=== PATIENT | male | born 2000 | race Caucasian/White ===

== ENCOUNTER 2023-05-29 15:33 | Outpatient (AMB) | payer OTHER, SELFPAY ==
--- NOTE | 2023-05-29 14:07 | MHC.OFFVISPS ---
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 He has had trouble getting the luvox ER from pharmacy due to manufacturing shortage; He continues to have anxiety and worry as well as low mood and low motivation; he denies SI or HI; No sign of cristobal or psychosis . In 2022, pt had a seizure on a Thursday at home in his bedroom around 4pm. He went to the ER and was evaluated. He denies alcohol use since November 2022. He had been using some THC but no change from past. He reports he had been taking a slight bit more of ativan up to 2 tabs at a time. He also was taking the IR luvox because he was unable to get the ER due to manufacturing delay. He was also on wellbutrin at the time. He did not injure himself. He had follow up with a neurologist who evaluated him and did EEG - no epilepsy and pt says that he was told probably a combination of things and wouldn't likely happen again- did recommend titrating off wellbutrin which we did. he has never had a seizure in past and no family history of seizures. He is struggling with stress related to his job and recent break up with GF. He can not drive until July due to the seizure. 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 He denies SI or HI. appetite intact. He reports sleep is good. Past Psychiatric History: Outpatient treatment of anxiety and OCD since age 16. prozac - higher then 30 mg in past caused edginess zoloft caused GI upset luvox partial effectiveness and hard to get due to manufacturing shortage. Panic attacks: Yes Agoraphobia: No Separation anxiety disorder: No Social phobia: Yes Specific phobia: No Body dysmorphic disorder: No Obsessive compulsive disorder: Yes Generalized anxiety: Yes Post traumatic stress disorder: No Acute stress disorder: No Previous psychiatric history: Yes Previous inpatient psychiatric hospitalization: No Other previous psychiatric treatment programs: none History of suicidal ideation: Yes History of suicide attempt: No Medically hospitalized: Yes History of self injurious behavior: No History of violence: No Current/previous psychiatrist: Gus Current/previous therapist: none Subjective Subjective Subjective Medication Compliance: Yes Side effects from medications: No Review of Systems Medical Review of Systems: unchanged Review of Systems Review of Systems Yes all other systems are reviewed and are negative Mental Status Exam Mental Status Exam Patient Appearance: Well Grooomed and Appropriate Patient Orientation: Person, Place, Time and Situation Level of Consciousness: Awake Patient Behavior: Appropriate and Cooperative Mood Description: Appropriate and Anxious Affect Description: Appropriate, Anxious and Flat Patient Cognition Impaired: No Ability to Follow Directions: Good Speech Pattern: Clear and Appropriate Memory Description: Intact Hallucinations: None Delusions: Not Present Thought Process: Intact and Goal Oriented Thought Content: positive for Intact and positive for Goal Oriented Judgement: Fair Assessment and Plan Assessment & Plan (1) Obsessive-compulsive disorder: Qualifiers: Obsessive-compulsive disorder type: mixed obsessional thoughts and acts Qualified Code(s): F42.2 - Mixed obsessional thoughts and acts Code(s): F42.9 - Obsessive-compulsive disorder, unspecified (2) Generalized anxiety disorder: Code(s): F41.1 - Generalized anxiety disorder (3) Dysthymia: Code(s): F34.1 - Dysthymic disorder Plan discussed options for medications for improved symptoms control; discussed risks vs benefits of changing medications and expected outcome; pt agree to trial of prozac Plan to cross titrate luvox to prozac start the prozac 20 mg and take one cap every other day x 14 days then take one cap daily x 14 days at the same time reduce luvox to luvox ER 150mg daily plus luvox IR 100mg daily x 7 days the reduce to luvox ER 150mg daily and lovix IR 50mg daily x 7days then start prozac 20mg daily and take luvox ER 150mg once a day x 7 days then take prozac 20 mg cap daily and luvox IR 50 mg daily x 7 days then stop luvox call office if feel dizziness, confusion, sweaty, chills, nausea, or any new discomfort or mood changes return for follow up in 4-6 weeks. Medications: New fluoxetine (Prozac) 20 mg orally take one capsule every other day x 14 days then take every day x 14 days 30 caps 0RF Counseling and coordination of Care Pt. Self Management counseling: Maintenance-social rhythm, Sleep hygiene and General coping skills Medication management counseling: Effectiveness, Side effects, Dosing range, Duration, Drug interaction and Adherence Diagnosis and Prognosis Counseling: Accuracy of diagnosis, Prognosis over time, Impact of diagnosis on life functions, Impact of family relationship, Problematic behaviors secondary to diagnosis and Adequacy of current interventions Details: I spent 30 minutes reviewing the record, seeing the patient and documenting in the medical record. Counseling provided to the patient/caregiver as outlined below. Addressed patient/caregiver concerns regarding current medication regime including effective adherence. Addressed patient/caregiver concerns regarding diagnosis and prognosis including accuracy of diagnosis, prognosis over time, impact of diagnosis. Addressed patient/caregiver concerns regarding impact of recent stressors. [facility] Medical History (Updated 05/29/23 @ 16:27 by Юлия Weber APRN) History of herniated intervertebral disc Surgical History (Updated 05/29/23 @ 16:27 by Юлия Weber APRN) History of hernia surgery Social History: grew up in [place] with mother and father, 1 younger sister in high school, graduated high school, [employer] [place] as business major, enjoys movies, hanging out with friends sports Substance History: episodic etoh and THC use Trauma History: multiple surgeries as child Coding Level of Care Code Est Pt Level 4 (83288) Diagnoses Mixed obsessional thoughts and acts F42.2 Obsessive-compulsive disorder type: mixed obsessional thoughts and acts Generalized anxiety disorder F41.1 Dysthymia F34.1
== END 2023-05-29 18:47 | disposition home or self-care (01) ==
LOC: HO.HOP 15:33
PROVIDERS: PCP Internal Medicine; Visit Provider Clinical Nurse Specialist Psychiatric/Mental Health
DX: F42.2 Mixed obsessional thoughts and acts (principal); F41.1 Generalized anxiety disorder; F34.1 Dysthymic disorder
CPT/HCPCS: 99214

== ENCOUNTER → 2023-05-29 15:33 | Outpatient (BNVA) | payer OTHER, SELFPAY | PROVIDERS: PCP Internal Medicine; Visit Provider Clinical Nurse Specialist Psychiatric/Mental Health ==

== ENCOUNTER 2023-07-10 19:23 | Outpatient (AMB) | payer OTHER, SELFPAY ==
--- NOTE | 2023-07-10 15:30 | A.OFFPSYCH_ITS ---
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 prozac - higher then 30 mg in past caused edginess zoloft caused GI upset luvox partial effectiveness and hard to get due to manufacturing shortage. Subjective Subjective Subjective Medication Compliance: Yes Side effects from medications: No Review of Systems Medical Review of Systems: unchanged Mental Status Exam Mental Status Exam Patient Appearance: Well Grooomed and Appropriate Patient Orientation: Person, Place, Time and Situation Level of Consciousness: Awake Patient Behavior: Appropriate and Cooperative Mood Description: Withdrawn Affect Description: Flat Patient Cognition Impaired: No Ability to Follow Directions: Good Speech Pattern: Clear and Appropriate Memory Description: Intact Hallucinations: None Delusions: Not Present Thought Process: Intact Thought Content: positive for Intact Judgement: Good Assessment and Plan Assessment & Plan (1) Obsessive-compulsive disorder: Qualifiers: Obsessive-compulsive disorder type: mixed obsessional thoughts and acts Qualified Code(s): F42.2 - Mixed obsessional thoughts and acts Code(s): F42.9 - Obsessive-compulsive disorder, unspecified (2) SINDY (generalized anxiety disorder): Status: Acute Code(s): F41.1 - Generalized anxiety disorder Medications: Changed From fluoxetine (Prozac) 20 mg PO DAILY 30 caps 3RF To fluoxetine (Prozac) 40 mg (2 x 20 mg) PO DAILY 60 caps 3RF Counseling and coordination of Care Pt. Self Management counseling: Exercise, Mod caffeine/ETOH intake, Nutrition education and improvement, Sleep hygiene and Behavior activation Medication management counseling: Effectiveness, Side effects, Dosing range, Duration, Drug interaction and Adherence Diagnosis and Prognosis Counseling: Accuracy of diagnosis, Prognosis over time, Impact of diagnosis on life functions, Impact of family relationship, Problematic behaviors secondary to diagnosis and Adequacy of current interventions Details: I spent [] minutes reviewing the record, seeing the patient and documenting in the medical record. Counseling provided to the patient/caregiver as outlined below. Addressed patient/caregiver concerns regarding current medication regime including effective adherence. Addressed patient/caregiver concerns regarding diagnosis and prognosis including accuracy of diagnosis, prognosis over time, impact of diagnosis. Addressed patient/caregiver concerns regarding impact of recent stressors. [facility] Medical History (Updated 07/13/23 @ 10:57 by Юлия Weber APRN) History of herniated intervertebral disc Surgical History (Updated 05/29/23 @ 16:27 by Юлия Weber APRN) History of hernia surgery Social History: grew up in [place] with mother and father, 1 younger sister in high school, graduated high school, [employer] as business major, enjoys movies, hanging out with friends sports Substance History: episodic etoh and THC use Trauma History: multiple surgeries as child Coding Level of Care Code Est Pt Level 4 (35465) Diagnoses Mixed obsessional thoughts and acts F42.2 Obsessive-compulsive disorder type: mixed obsessional thoughts and acts SINDY (generalized anxiety disorder) F41.1
== END 2023-07-10 19:24 | disposition home or self-care (01) ==
LOC: HO.HOP 19:24
PROVIDERS: PCP Internal Medicine; Visit Provider Clinical Nurse Specialist Psychiatric/Mental Health
DX: F42.2 Mixed obsessional thoughts and acts (principal); F41.1 Generalized anxiety disorder
CPT/HCPCS: 99214

== ENCOUNTER → 2023-07-10 19:23 | Outpatient (BNVA) | payer OTHER, SELFPAY | PROVIDERS: PCP Internal Medicine; Visit Provider Clinical Nurse Specialist Psychiatric/Mental Health ==

== ENCOUNTER 2023-09-11 11:55 | Outpatient (AMB) | payer OTHER, SELFPAY ==
--- NOTE | 2023-09-11 11:39 | MHC.OFFVISPS ---
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 He is not sleeping well. He wakes up after a few hours of sleep and then can not return to sleep for an hour or more. He does get 7 hours but it is broken sleep and often not refreshing; He has started a new job 2 weeks ago and works 3-11 shift mostly. No SI or HI. He would like to try increasing the prozac to 60mg and we discussed retrial of hydroxyzine for sleep. No etoh or thc use HPI Narrative: pt struggling with depression and anxiety since 16, trial of luvox. pt had seizure on wellbutrin over 6 months ago- had full work up - no epilepsy. start on prozac without side effects; recent stress is job change and break up with GF several months ago Past Psychiatric History: Outpatient treatment of anxiety and OCD since age 16. prozac - higher then 30 mg in past caused edginess zoloft caused GI upset luvox partial effectiveness and hard to get due to manufacturing shortage. Mental Status Exam Mental Status Exam Patient Appearance: Well Grooomed and Appropriate Patient Orientation: Person, Place, Time and Situation Level of Consciousness: Awake and Alert Patient Behavior: Appropriate, Cooperative and Good Eye Contact Mood Description: Depressed and Anxious Affect Description: Flat Patient Cognition Impaired: No Ability to Follow Directions: Good Speech Pattern: Clear Memory Description: Intact Hallucinations: None Delusions: Not Present Thought Process: Intact Thought Content: positive for Intact Judgement: Good Assessment and Plan Assessment & Plan (1) SINDY (generalized anxiety disorder): Status: Acute Code(s): F41.1 - Generalized anxiety disorder (2) Dysthymia: Status: Acute Code(s): F34.1 - Dysthymic disorder Plan increase prozac to 60mg daily add hydroxyzine 25 mg at bedtime ativan prn panic/severe anxiety Medications: New hydroxyzine HCl 25 mg PO BEDTIME PRN 30 tabs 2RF sleep lorazepam 0.5 mg PO DAILY 20 tabs 0RF Changed From fluoxetine (Prozac) 40 mg (2 x 20 mg) PO DAILY 60 caps 3RF To fluoxetine (Prozac) 60 mg (3 x 20 mg) PO DAILY 60 caps 3RF Refilled fluoxetine (Prozac) 60 mg (3 x 20 mg) PO DAILY 90 caps 3RF Counseling and coordination of Care Medication management counseling: Effectiveness, Side effects, Dosing range, Duration, Drug interaction and Adherence Diagnosis and Prognosis Counseling: Accuracy of diagnosis, Prognosis over time, Impact of diagnosis on life functions, Problematic behaviors secondary to diagnosis and Adequacy of current interventions Details: I spent 30 minutes reviewing the record, seeing the patient and documenting in the medical record. Counseling provided to the patient/caregiver as outlined below. Addressed patient/caregiver concerns regarding current medication regime including effective adherence. Addressed patient/caregiver concerns regarding diagnosis and prognosis including accuracy of diagnosis, prognosis over time, impact of diagnosis. Addressed patient/caregiver concerns regarding impact of recent stressors. [facility] Medical History (Updated 09/11/23 @ 13:03 by Юлия Weber APRN) History of herniated intervertebral disc Surgical History (Updated 05/29/23 @ 16:27 by Юлия Weber APRN) History of hernia surgery Social History: grew up in [place] with mother and father, 1 younger sister in high school, graduated high school, [employer] as business major, enjoys movies, hanging out with friends sports Substance History: episodic etoh and THC use Trauma History: multiple surgeries as child Coding Level of Care Code Est Pt Level 4 (73705) Diagnoses SINDY (generalized anxiety disorder) F41.1 Dysthymia F34.1
== END 2023-09-11 11:58 | disposition home or self-care (01) ==
LOC: HO.HOP 11:55
PROVIDERS: PCP Internal Medicine; Visit Provider Clinical Nurse Specialist Psychiatric/Mental Health
DX: F41.1 Generalized anxiety disorder (principal); F34.1 Dysthymic disorder
CPT/HCPCS: 99214

== ENCOUNTER → 2023-09-11 11:55 | Outpatient (BNVA) | payer OTHER, SELFPAY | PROVIDERS: PCP Internal Medicine; Visit Provider Clinical Nurse Specialist Psychiatric/Mental Health ==

== ENCOUNTER 2023-10-30 11:30 | Outpatient (AMB) | payer OTHER, SELFPAY ==
--- NOTE | 2023-10-30 11:58 | MHC.OFFVISPS ---
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 mild depression symporms; anxiety mild; sleep intact; no SI or HI no medical changes Past Psychiatric History: Outpatient treatment of anxiety and OCD since age 16. prozac - higher then 30 mg in past caused edginess zoloft caused GI upset luvox partial effectiveness and hard to get due to manufacturing shortage. Subjective Subjective Subjective Medication Compliance: Yes Side effects from medications: No Review of Systems Medical Review of Systems: unchanged Mental Status Exam Mental Status Exam Patient Appearance: Well Grooomed and Appropriate Patient Orientation: Person, Place, Time and Situation Level of Consciousness: Awake Patient Behavior: Appropriate and Cooperative Mood Description: Calm and Flat Affect Description: Calm and Flat Patient Cognition Impaired: No Ability to Follow Directions: Good Speech Pattern: Clear and Soft-Spoken Memory Description: Intact Hallucinations: None Delusions: Not Present Thought Process: Intact Thought Content: positive for Intact Judgement: Good Assessment and Plan Assessment & Plan (1) SINDY (generalized anxiety disorder): Status: Acute Code(s): F41.1 - Generalized anxiety disorder (2) Dysthymia: Status: Acute Code(s): F34.1 - Dysthymic disorder Plan continue prozac 60 mg daily continue hydroxyzine and ativan prn no refills needed Counseling and coordination of Care Pt. Self Management counseling: Maintenance-social rhythm, Mod caffeine/ETOH intake, Sleep hygiene, Behavior activation and General coping skills Medication management counseling: Effectiveness, Side effects, Dosing range, Duration, Drug interaction and Adherence Diagnosis and Prognosis Counseling: Accuracy of diagnosis and Adequacy of current interventions Details: I spent [] minutes reviewing the record, seeing the patient and documenting in the medical record. Counseling provided to the patient/caregiver as outlined below. Addressed patient/caregiver concerns regarding current medication regime including effective adherence. Addressed patient/caregiver concerns regarding diagnosis and prognosis including accuracy of diagnosis, prognosis over time, impact of diagnosis. Addressed patient/caregiver concerns regarding impact of recent stressors. [facility] Medical History (Updated 09/11/23 @ 13:03 by Юлия Weber APRN) History of herniated intervertebral disc Surgical History (Updated 05/29/23 @ 16:27 by Юлия Weber APRN) History of hernia surgery Social History: [place] in [place] with mother and father, 1 younger sister in high school, graduated high school, [employer] as business major, enjoys movies, hanging out with friends sports Substance History: episodic etoh and THC use Trauma History: multiple surgeries as child Coding Level of Care Code Est Pt Level 4 (99120) Diagnoses SINDY (generalized anxiety disorder) F41.1 Dysthymia F34.1
== END 2023-10-30 12:04 | disposition home or self-care (01) ==
LOC: HO.HOP 11:30
PROVIDERS: PCP Internal Medicine; Visit Provider Clinical Nurse Specialist Psychiatric/Mental Health
DX: F41.1 Generalized anxiety disorder (principal); F34.1 Dysthymic disorder
CPT/HCPCS: 99214

== ENCOUNTER → 2023-10-30 11:30 | Outpatient (BNVA) | payer OTHER, SELFPAY | PROVIDERS: PCP Internal Medicine; Visit Provider Clinical Nurse Specialist Psychiatric/Mental Health ==

== ENCOUNTER 2023-12-25 11:31 | Outpatient (AMB) | payer OTHER, SELFPAY ==
--- NOTE | 2023-12-25 11:44 | MHC.OFFVISPS ---
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 pt is working [employer] and doing well. He is spending time with friends and family. No other changes Past Psychiatric History: Outpatient treatment of anxiety and OCD since age 16. prozac - higher then 30 mg in past caused edginess zoloft caused GI upset luvox partial effectiveness and hard to get due to manufacturing shortage. Subjective Subjective Subjective Medication Compliance: Yes Side effects from medications: No Review of Systems Medical Review of Systems: unchanged Mental Status Exam Mental Status Exam Patient Appearance: Well Grooomed and Appropriate Patient Orientation: Person, Place, Time and Situation Level of Consciousness: Awake and Appropriate Patient Behavior: Appropriate and Cooperative Mood Description: Depressed Affect Description: Flat Patient Cognition Impaired: No Ability to Follow Directions: Good Speech Pattern: Clear, Appropriate and Coherent Memory Description: Intact Hallucinations: None Delusions: Not Present Thought Process: Intact and Goal Oriented Thought Content: positive for Intact and positive for Goal Oriented Judgement: Good Assessment and Plan Assessment & Plan (1) Dysthymia: Status: Acute Code(s): F34.1 - Dysthymic disorder (2) SINDY (generalized anxiety disorder): Status: Acute Code(s): F41.1 - Generalized anxiety disorder Plan continue prozac 60 mg daily continnue hydroxyzine and ativan prn Medications: Refilled lorazepam 0.5 mg PO DAILY 20 tabs 0RF fluoxetine (Prozac) 60 mg (3 x 20 mg) PO DAILY 90 caps 3RF hydroxyzine HCl 25 mg PO BEDTIME PRN 30 tabs 2RF sleep Counseling and coordination of Care Pt. Self Management counseling: Maintenance-social rhythm, Mod caffeine/ETOH intake and General coping skills Medication management counseling: Effectiveness, Side effects, Dosing range, Duration, Drug interaction and Adherence Diagnosis and Prognosis Counseling: Accuracy of diagnosis, Prognosis over time, Impact of diagnosis on life functions, Impact of family relationship, Problematic behaviors secondary to diagnosis and Adequacy of current interventions Details: I spent 30 minutes reviewing the record, seeing the patient and documenting in the medical record. Counseling provided to the patient/caregiver as outlined below. Addressed patient/caregiver concerns regarding current medication regime including effective adherence. Addressed patient/caregiver concerns regarding diagnosis and prognosis including accuracy of diagnosis, prognosis over time, impact of diagnosis. Addressed patient/caregiver concerns regarding impact of recent stressors. [facility] Medical History (Updated 09/11/23 @ 13:03 by Юлия Weber APRN) History of herniated intervertebral disc Surgical History (Updated 05/29/23 @ 16:27 by Юлия Weber APRN) History of hernia surgery Social History: grew up in [place] with mother and father, 1 younger sister in high school, graduated high school, [employer] as business major, enjoys movies, hanging out with friends sports Substance History: episodic etoh and THC use Trauma History: multiple surgeries as child Coding Level of Care Code Est Pt Level 4 (21498) Diagnoses Dysthymia F34.1 SINDY (generalized anxiety disorder) F41.1
== END 2023-12-25 11:54 | disposition home or self-care (01) ==
LOC: HO.HOP 11:31
PROVIDERS: PCP Internal Medicine; Visit Provider Clinical Nurse Specialist Psychiatric/Mental Health
DX: F34.1 Dysthymic disorder (principal); F41.1 Generalized anxiety disorder
CPT/HCPCS: 99214

== ENCOUNTER → 2023-12-25 11:31 | Outpatient (BNVA) | payer OTHER, SELFPAY | PROVIDERS: PCP Internal Medicine; Visit Provider Clinical Nurse Specialist Psychiatric/Mental Health ==

== ENCOUNTER 2024-02-19 10:27 | Outpatient (AMB) | payer OTHER, SELFPAY ==
--- NOTE | 2024-02-19 10:37 | MHC.OFFVISPS ---
Intake Intake Visit Reasons: depression Envelope Sealer Required: No Allergies bupropion [From Wellbutrin] Adverse Reaction (Severe, Verified 05/29/23 16:14) Seizure Medication List - Last Reconciled 02/19/24 by Юлия Weber APRN albuterol sulfate mg inhalation fluoxetine (Prozac) 60 mg (3 x 20 mg) PO DAILY hydroxyzine HCl 25 mg PO BEDTIME PRN lorazepam 0.5 mg PO DAILY HPI- Psychiatric Chief Complaint: depression HPI Narrative: pt reports he is stable overall; he continues to have some OCD symptoms wit rituals of checking behaviors. He does checking at home and work; its more difficult at home as he sometimes is delayed leaving his home due to the checking. He is not sleeping well approximately 50% of the time. He does not take the hydroxyzine due to daytime and am sleepiness. He is agreeable to increase in proxzac to 80 mg daily; he has no side effects but will watch for any with the increase; no SI or HI. PHQ9=7 GAD7= 5. Past Psychiatric History: Outpatient treatment of anxiety and OCD since age 16. prozac - higher then 30 mg in past caused edginess zoloft caused GI upset luvox partial effectiveness and hard to get due to manufacturing shortage. Subjective Subjective Subjective Medication Compliance: Yes Side effects from medications: No Review of Systems Medical Review of Systems: unchanged Review of Systems Review of Systems no changes Mental Status Exam Mental Status Exam Patient Appearance: Well Grooomed and Appropriate Patient Orientation: Person, Place, Time and Situation Level of Consciousness: Awake and Alert Patient Behavior: Appropriate, Guarded and Cooperative Mood Description: Anxious Affect Description: Anxious Patient Cognition Impaired: No Ability to Follow Directions: Good Speech Pattern: Clear and Appropriate Memory Description: Intact Hallucinations: None Delusions: Not Present Thought Process: Intact and Goal Oriented Thought Content: positive for Intact and positive for Goal Oriented Judgement: Good Assessment and Plan Assessment & Plan (1) Dysthymia: Status: Acute Code(s): F34.1 - Dysthymic disorder (2) SINDY (generalized anxiety disorder): Status: Acute Code(s): F41.1 - Generalized anxiety disorder (3) OCD (obsessive compulsive disorder): Status: Acute Qualifiers: Obsessive-compulsive disorder type: mixed obsessional thoughts and acts Qualified Code(s): F42.2 - Mixed obsessional thoughts and acts Code(s): F42.9 - Obsessive-compulsive disorder, unspecified Plan increase prozac to 80mg daily use hydroxyzine and ativan prn Medications: Changed From fluoxetine (Prozac) 60 mg (3 x 20 mg) PO DAILY 90 caps 3RF To fluoxetine (Prozac) 80 mg (4 x 20 mg) PO DAILY 120 caps 3RF Counseling and coordination of Care Pt. Self Management counseling: Maintenance-social rhythm, Mod caffeine/ETOH intake, Sleep hygiene, General coping skills and Problem solving Medication management counseling: Effectiveness, Side effects, Dosing range, Duration, Drug interaction and Adherence Diagnosis and Prognosis Counseling: Accuracy of diagnosis, Prognosis over time, Impact of diagnosis on life functions, Impact of family relationship, Problematic behaviors secondary to diagnosis and Adequacy of current interventions Details: I spent 40 minutes reviewing the record, seeing the patient and documenting in the medical record. Counseling provided to the patient/caregiver as outlined below. Addressed patient/caregiver concerns regarding current medication regime including effective adherence. Addressed patient/caregiver concerns regarding diagnosis and prognosis including accuracy of diagnosis, prognosis over time, impact of diagnosis. Addressed patient/caregiver concerns regarding impact of recent stressors. [facility] Medical History (Updated 02/19/24 @ 12:29 by Юлия Weber APRN) History of herniated intervertebral disc Surgical History (Updated 05/29/23 @ 16:27 by Юлия Weber APRN) History of hernia surgery Social History: grew up in [place] with mother and father, 1 younger sister in high school, graduated high school, [employer] as business major, enjoys movies, hanging out with friends sports Substance History: episodic etoh and THC use Trauma History: multiple surgeries as child Coding Level of Care Code Est Pt Level 4 (56131) Diagnoses Dysthymia F34.1 SINDY (generalized anxiety disorder) F41.1 Mixed obsessional thoughts and acts F42.2 Obsessive-compulsive disorder type: mixed obsessional thoughts and acts
== END 2024-02-19 10:31 | disposition home or self-care (01) ==
LOC: HO.HOP 10:27
PROVIDERS: PCP Internal Medicine; Visit Provider Clinical Nurse Specialist Psychiatric/Mental Health
DX: F34.1 Dysthymic disorder (principal); F41.1 Generalized anxiety disorder; F42.2 Mixed obsessional thoughts and acts
CPT/HCPCS: 99214

== ENCOUNTER 2024-04-15 10:27 | Outpatient (AMB) | payer OTHER, SELFPAY ==
--- NOTE | 2024-04-15 10:35 | MHC.OFFVISPS ---
Intake Intake Visit Reasons: follow up Field Installation Technician Required: No Allergies bupropion [From Wellbutrin] Adverse Reaction (Severe, Verified 05/29/23 16:14) Seizure Medication List - Last Reconciled 04/15/24 by Юлия Weber APRN albuterol sulfate mg inhalation fluoxetine (Prozac) 80 mg (4 x 20 mg) PO DAILY hydroxyzine HCl 25 mg PO BEDTIME PRN lorazepam 0.5 mg PO DAILY HPI- Psychiatric Chief Complaint: follow up HPI Narrative: Pt reports improved anxiety and less worrying; he is less depressed; her reports prozac seems coby helping at times he feels slightly revved up by it but no cristobal or impulsivity. 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 He sleeps well. He reports daytime fatigue most of the time despite sleeping well; he does not use the hydroxyzine or ativan often. He is eatin well; he has not had blood work done for many years. He is betwen PCP due to new insurance plan but will make appt soon. No SI no HI. no etoh or TC abuse. Past Psychiatric History: Outpatient treatment of anxiety and OCD since age 16. prozac - higher then 30 mg in past caused edginess zoloft caused GI upset luvox partial effectiveness and hard to get due to manufacturing shortage. Subjective Subjective Subjective Medication Compliance: Yes Side effects from medications: No Review of Systems Medical Review of Systems: unchanged Mental Status Exam Mental Status Exam Patient Appearance: Well Grooomed and Appropriate Patient Orientation: Person, Place, Time and Situation Level of Consciousness: Awake and Appropriate Patient Behavior: Appropriate Mood Description: Calm and Appropriate Affect Description: Appropriate Patient Cognition Impaired: No Ability to Follow Directions: Good Speech Pattern: Clear Memory Description: Intact Hallucinations: None Delusions: Not Present Thought Process: Intact and Goal Oriented Thought Content: positive for Intact and positive for Goal Oriented Judgement: Good Assessment and Plan Assessment & Plan (1) OCD (obsessive compulsive disorder): Status: Acute Qualifiers: Obsessive-compulsive disorder type: mixed obsessional thoughts and acts Qualified Code(s): F42.2 - Mixed obsessional thoughts and acts Code(s): F42.9 - Obsessive-compulsive disorder, unspecified (2) Dysthymia: Status: Acute Code(s): F34.1 - Dysthymic disorder (3) SINDY (generalized anxiety disorder): Status: Acute Code(s): F41.1 - Generalized anxiety disorder Plan continue meds per below- no refills needed at this time return in 2 months Medications: Refilled fluoxetine (Prozac) 80 mg (4 x 20 mg) PO DAILY 120 caps 3RF hydroxyzine HCl 25 mg PO BEDTIME PRN 30 tabs 2RF sleep lorazepam 0.5 mg PO DAILY 20 tabs 0RF Orders: Orders Complete Blood Count Auto Diff Today R53.83 - Other fatigue Comprehensive [place]. Panel Fast Today R53.83 - Other fatigue Vitamin B12 and Folate Today R53.83 - Other fatigue TSH reflex Free T4 Today F34.1 - Dysthymic disorder, R53.83 - Other fatigue IRON PROFILE Today R53.83 - Other fatigue Vitamin D 25-OH Total Today R53.83 - Other fatigue Counseling and coordination of Care Pt. Self Management counseling: Exercise, Maintenance-social rhythm, Mod caffeine/ETOH intake, Nutrition education and improvement, Sleep hygiene, General coping skills and Problem solving Medication management counseling: Effectiveness, Side effects, Dosing range, Duration and Drug interaction Diagnosis and Prognosis Counseling: Accuracy of diagnosis, Prognosis over time, Impact of diagnosis on life functions, Impact of family relationship, Problematic behaviors secondary to diagnosis and Adequacy of current interventions Details: I spent 40 minutes reviewing the record, seeing the patient and documenting in the medical record. Counseling provided to the patient/caregiver as outlined below. Addressed patient/caregiver concerns regarding current medication regime including effective adherence. Addressed patient/caregiver concerns regarding diagnosis and prognosis including accuracy of diagnosis, prognosis over time, impact of diagnosis. Addressed patient/caregiver concerns regarding impact of recent stressors. [facility] Medical History (Updated 04/15/24 @ 10:41 by Юлия Weber APRN) History of herniated intervertebral disc Surgical History (Updated 05/29/23 @ 16:27 by Юлия Weber APRN) History of hernia surgery Social History: grew up in [place] with mother and father, 1 younger sister in high school, graduated high school, [employer] as business major, enjoys movies, hanging out with friends sports Substance History: episodic etoh and THC use Trauma History: multiple surgeries as child Coding Level of Care Code Est Pt Level 4 (65987) Diagnoses Mixed obsessional thoughts and acts F42.2 Obsessive-compulsive disorder type: mixed obsessional thoughts and acts Dysthymia F34.1 SINDY (generalized anxiety disorder) F41.1
--- OUTSIDE RECORDS SUMMARY | 2024-04-15 11:18 | XMS_ITS | Encounter Summary ---
Author Organization [facility] Address [address] [place] [id number] Care Team Providers Care Physics Professor Name Role Phone Maribel Urbina MD Primary Care Provider [phone] Encounter Details Date Type Department Care Team (Late st Contact Info) Description 02/12/2024 Scanned Document [facility] [address] [phone] Anthony Levin MD [address] [place] [id number] Social History Tobacco Use Types Packs/Day Years Used Date Smoking Tobacco: Never Assessed Sex and Gender Information Value Date Recorded Sex Assigned at Not on file Gender Identity Not on file Sexual Orientation Not on file documented as of this encounter Plan of Treatment Not on file documented as of this encounter Visit Diagnoses Not on filedocumented in this encounter Care Teams Physics Professor Relationship Specialty Start Date End Date Maribel Urbina MD [address] [place] [phone] PCP - General 10/13/23 documented as of this encounter
--- OUTSIDE RECORDS SUMMARY | 2024-04-15 11:18 | XMS_ITS | Encounter Summary ---
Author Organization [facility] Address [address] [place] [id number] Phone Care Team Providers Care Metal Ceiling Hanger Name Role Phone Rolly Jenkins MD Primary Care Provider Encounter Details Date Type Department Care Team (Late st Contact Info) Description 03/05/2009 Documentation [facility] Family Medicine [address] [place], [place] [id number] Family Medicine, Physician [address] [place] [address] Social History Tobacco Use Types Packs/Day Years Used Date Smoking Tobacco: Never Assessed Sex and Gender Information Value Date Recorded Sex Assigned at Not on file Legal Sex Male 6:08 PM EDT Gender Identity Not on file Sexual Orientation Not on file documented as of this encounter Plan of Treatment Not on file documented as of this encounter Visit Diagnoses Not on filedocumented in this encounter Care Teams Metal Ceiling Hanger Relationship Specialty Start Date End Date Rolly Jenkins MD [address] [place] [address] PCP - General 07/08/17 01/11/24 documented as of this encounter
--- OUTSIDE RECORDS SUMMARY | 2024-04-15 11:18 | XMS_ITS | Encounter Summary ---
Author Organization [facility] Address [address] [place] [address] Phone Care Team Providers Care Seed Service Advisor Name Role Phone Rolly Jenkins MD Primary Care Provider [phone] Encounter Details Date Type Department Care Team (Late st Contact Info) Description 07/19/2017 Conversion Encounter [facility] [address] [place] [address] Rolly Jenkins MD [address] [place] [address] Social History Tobacco Use Types Packs/Day Years [...] on filedocumented in this encounter Care Teams Seed Service Advisor Relationship Specialty Start Date End Date Rolly Jenkins MD [address] [place] [address] PCP - General 07/08/17 01/11/24 documented as of this encounter
--- OUTSIDE RECORDS SUMMARY | 2024-04-15 11:18 | XMS_ITS | Clinical Summary ---
Author Organization [facility] Address [address] [place] [address] Care Team Providers Care Quality Assurance Manager Name Role Phone Maribel Urbina MD Primary Care Provider Allergies No known active allergies Medications Medication Sig Dispensed Refills Start Date End Date Status FLUoxetine (PROzac) 20 MG capsule Take 40 mg by mouth. 10/05/2023 Active naproxen (NAPROSYN) 500 MG tabletIndications:Num bness and tingling of both upper extremities,Acute pain of right shoulder Take 1 tablet (500 mg total) by mouth 2 times daily (every 12 hours) as needed for mild pain. Take with meals or food to reduce stomach upset. 20 tablet 10/13/2023 Active cyclobenzaprine (FLEXERIL) 5 MG tabletIndications:Mus lam spasm of back Take 1 tablet (5 mg total) by mouth 3 times daily (every 8 hours) as needed for muscle spasms. 30 tablet 10/13/2023 Active Active Problems No known active problems Encounters Date Type Department Care Team Description 02/12/2024 Scanned Document [facility] [address] [address] Anthony Levin MD 02/09/2024 Refill [address] [phone] Anthony Levin MD 01/19/2024 2:30 PM EST Office Visit Orthopedic [address] [phone] SHALINI Mayen, RAISSAC Radiculopathy, lumbar region (Primary Dx) 01/15/2024 Refill [address] [address] Mayen, RYAN LOYA from Last 3 Months Social History Tobacco Use Types Packs/Day Years Used Date Smoking Tobacco: Never Assessed Sex and Gender Information Value Date Recorded Sex Assigned at Not on file Gender Identity Not on file Sexual Orientation Not on file Last Filed Vital Signs Vital Sign Reading Time Taken Comments Blood Pressure 118/77 12/31/2023 10:04 AM EDT Pulse 78 12/31/2023 10:04 AM EDT Temperature 36.5 ??C (97.7 ??F) 12/31/2023 10:04 AM E DT Respiratory Rate - - Oxygen Saturation 94% 12/31/2023 10:04 AM EDT Inhaled Oxygen Concentration - - Weight 74.8 kg (165 lb) 12/31/2023 10:04 AM EDT Height 177.8 cm (5' 10 ) 12/31/2023 10:04 AM EDT Body Mass Index 23.68 12/31/2023 10:04 AM EDT Plan of Treatment Health Maintenance Due Date Last Done Comments Hepatitis C Virus Screening 1998 HIV Screening 2011 HPV Vaccines (1 - Male 3-dose series) 2013 DTaP/Tdap/Td Vaccines (1 - Tdap) 2017 Hepatitis B Vaccines (1 of 3 - 19+ 3-dose series) 2017 Influenza Vaccine 10/01/2023 12/10/2017, , 04/12/2014, Additional history exists COVID-19 Vaccine ( season) 2023 Pneumococcal Vaccine: Pediatric (0-5 Years) and At-Risk Patients (6 to 49 Years) Aged Out No longer eligible based on patient's age to complete this topic Care Teams Quality Assurance Manager Relationship Specialty Start Date End Date Maribel Urbina MD [address] [place] [id number] PCP - General 10/13/23
--- OUTSIDE RECORDS SUMMARY | 2024-04-15 11:18 | XMS_ITS | Encounter Summary ---
Author Organization [facility] Address [address] [place] [address] Care Team Providers Care Utilities Equipment Repairer Name Role Phone Maribel Urbina MD Primary Care Provider [phone] Encounter Details Date Type Department Care Team (Late st Contact Info) Description 10/13/2023 Scanned Document [address] [place] [phone] Provider, Generic Social History Tobacco Use Types Packs/Day Years Used Date Smoking Tobacco: Never Assessed Sex and Gender Information Value Date Recorded Sex Assigned at Not on file Gender Identity Not on file Sexual Orientation Not on file documented as of this encounter Plan of Treatment Not on file documented as of this encounter Visit Diagnoses Not on filedocumented in this encounter Care Teams Utilities Equipment Repairer Relationship Specialty Start Date End Date Maribel Urbina MD [address] [place] [phone] PCP - General 10/13/23 documented as of this encounter
--- OUTSIDE RECORDS SUMMARY | 2024-04-15 11:18 | XMS_ITS | Encounter Summary ---
Author Organization [facility] Address [address] [place] [address] Care Team Providers Care Medical Affairs Manager Name Role Phone Maribel Urbina MD Primary Care Provider [phone] Encounter Details Date Type Department Care Team (Late st Contact Info) Description 10/13/2023 Scanned Document [address] [place] [phone] Provider, Generic Social History Tobacco Use Types [...] on filedocumented in this encounter Care Teams Medical Affairs Manager Relationship Specialty Start Date End Date Maribel Urbina MD [address] [place] [id number] PCP - General 10/13/23 documented as of this encounter
--- OUTSIDE RECORDS SUMMARY | 2024-04-15 11:18 | XMS_ITS ---
Author Name [facility] Organization Unknown History of Medication Use Medication Directions Dispensed Refills Start Date End Date Stat us methylPREDNISolone (MEDROL DOSEPAK) 4 MG tablet follow package directions 10/14/2023 active
--- OUTSIDE RECORDS SUMMARY | 2024-04-15 11:18 | XMS_ITS | Encounter Summary ---
Author Organization [facility] Address [address] [place] [address] Care Team Providers Care Transonic Engineer Name Role Phone Maribel Urbina MD Primary Care Provider [phone] Encounter Details Date Type Department Care Team (Late st Contact Info) Description 12/31/2023 Scanned Document [address] [place] [phone] Provider, Generic Social History Tobacco Use Types [...] on filedocumented in this encounter Care Teams Transonic Engineer Relationship Specialty Start Date End Date Maribel Urbina MD [address] [place] [phone] PCP - General 10/13/23 documented as of this encounter
--- OUTSIDE RECORDS SUMMARY | 2024-04-15 11:18 | XMS_ITS | Encounter Summary ---
Author Organization [facility] Address [address] [place] [address] Care Team Providers Care Reforestation Worker Name Role Phone Maribel Urbina MD Primary Care Provider [phone] Encounter Details Date Type Department Care Team (Late st Contact Info) Description 12/31/2023 Scanned Document [address] [place] [address] [phone] Provider, Generic Social History Tobacco Use Types [...] on filedocumented in this encounter Care Teams Reforestation Worker Relationship Specialty Start Date End Date Maribel Urbina MD [address] [place] [phone] PCP - General 10/13/23 documented as of this encounter
--- OUTSIDE RECORDS SUMMARY | 2024-04-15 11:18 | XMS_ITS | Clinical Summary ---
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 Zamudio. Positive for congestive gastropathy Medical History Medical History Date Comments Epigastric discomfort DX:Epigast apple discomfort Nausea and vomiting DX:Nausea an d vomiting Back pain DX:Back pain Abdominal cramping DX:Abdominal cramping Gastropathy DX:Gastropathy Marijuana use DX:Marijuana use Family History Relation Name Status Comments Father Alive Mother Alive Social History Tobacco Use Types Packs/Day Years Used Date Smoking Tobacco: Never Assessed Sex and Gender Information Value Date Recorded Sex Assigned at Not on file Legal Sex Male 9:48 PM EST Gender Identity Not on file Sexual Orientation Not on file Obstetrics History Plan of Treatment Health Maintenance Due Date Last Done Comments HPV Vaccines (1 - Male 3-dos e series) 2013 DTaP,Tdap,and Td Vaccines (1 - Tdap) 2017 Hepatitis B Vaccines (1 of 3 - 19+ 3-dose series) 2017 Depression Screening 02/01/2022 HIV Screening 02/01/2022 Hepatitis C Screening 02/01/2022 Social Influencers of Health Screening 02/01/2022 COVID-19 Vaccine (1 - 2023-2 5 season) 2023 Influenza Vaccine (#1) 2023 HIB Vaccines Aged Out No longer eligi ble based on patient's age to complete this topic Hepatitis A Vaccines Aged Out No long er eligible based on patient's age to complete this topic IPV Vaccines Aged Out No longer eligi ble based on patient's age to complete this topic MMR Vaccines Aged Out No longer eligi ble based on patient's age to complete this topic Meningococcal ACWY Vaccine Aged Out N o longer eligible based on patient's age to complete this topic Meningococcal B Vacine Aged Out No lo nger eligible based on patient's age to complete this topic Pneumococcal Vaccine: Pediat rics (0 to 5 Years) and At-Risk Patients (6 to 64 Years) Aged Out No longer eligible b ased on patient's age to complete this topic RSV Immunization Patients Un darian 20 months Aged Out No longer eligible b ased on patient's age to complete this topic Varicella Vaccines Aged Out No longer eligible based on patient's age to complete this topic Care Teams Catalyst Plant Supervisor Relationship Specialty Start Date End Date Maribel Urbina MD [address] [place] [address] PCP - General Internal Medicine 06/01/19
--- OUTSIDE RECORDS SUMMARY | 2024-04-15 11:19 | XMS_ITS | Clinical Summary ---
Author Organization [facility] Address [address] [place] [address] Phone Care Team Providers Care Waste Recycler Name Role Phone Unavailable Primary Care Provider Unavailabl e Medications albuterol HFA 108 (90 Base) MCG/ACT inhalerIndicatio ns:Asthma, unspecified asthma severity, unspecified whether complicated, unspecified whether persistent Inhale 2 puffs every 4 (four) hours as needed for wheezing or shortness of breath. 1 Units 8 Active FLUoxetine 10 MG capsuleIndicatio ns:Anxiety Take 1 capsule (10 mg total) by mouth every morning. 30 capsule 2 9 Active FLUoxetine 20 MG capsuleIndicatio ns:Anxiety Take 1 capsule (20 mg total) by mouth every morning. 30 capsule 9 Active Active Problems Problem Noted Date Diagnosed Date Anxiety with depression 03/26/2017 Overview (12/10/2017): On fluoxeitine 30mg per day for anxiety. Assessment & Plan (12/10/2017 1:42 PM EDT): Doing well on meds at this time; no changes. Other congenital malformations of bony thorax Overview (12/07/2017): 05/13; seen by Jhonatan and is in [facility] Immunizations Immunization Administration Dates Next Due DTaP 03/20/2003, 0,1998,06/21,1998 H1N1 02/08/2009 HPV, Quadrivalent 07/01/2013,03/29/2013,05/25/19 13 Hep A, Adult 12/10/2017 Hep B, ped/adol 1998,1998,1998 Hib (PRP-T) 06/03/1999, 9,1998,04/09 IPV 03/20/2003, 0,1998,04/09 Influenza 01/01/2007, 6,01/07/2005,12/22,03/10/2002 Influenza, injectable, quadrivalent 12/01,04/12/2014,12/08/2012,12/22,03/18/2010,03/05/2009 Influenza, injectable, quadr ivalent, preservative free 12/10/2017,12/01/2007 MMR 03/10/2002,03/05/1999 Meningococcal Conj (Menactra) MCV4P 04/12/2014,0 03/14/2009 Pneumococcal Conjugate 03/04/2000 Td (adult) (Tenivac), 5 Lf t etanus toxoid, PF, adsorbed 08/04/2016 Tdap 03/14/2009 Varicella 03/14/2009,06/03/1999 Family History Relation Name Status Comments Father Alive Maternal Grandfather Maternal Grandmother Mother Alive recovering alco lohic Other Alive Siblings: Paternal Grandfather Prostat e Cancer, pacemaker diagnosed with MALIGNANT NEOPLASM NOS Social History Tobacco Use Types Packs/Day Years Used Date Smoking Tobacco: Never Alcohol Use Standard Drinks/Week Comments Yes 2 (1 standard drink = 0.6 oz pur e alcohol) Sex and Gender Information Value Date Recorded Sex Assigned at Not on file Legal Sex Male 6:08 PM EDT Gender Identity Not on file Sexual Orientation Not on file Last Filed Vital Signs Vital Sign Reading Time Taken Comments Blood Pressure 118/64 12/10/2017 1:17 PM EDT Pulse 111 06/07/2009 12:00 AM EDT Temperature 36.6 ??C (97.8 ??F) 12/16/2016 12:00 AM E DT Respiratory Rate - - Oxygen Saturation 98% 06/07/2009 12:00 AM EDT Inhaled Oxygen Concentration - - Weight 67.1 kg (148 lb) 12/10/2017 1:17 PM EDT Height 180.3 cm (5' 11 ) 12/10/2017 1:17 PM EDT Body Mass Index 20.64 12/10/2017 1:17 PM EDT Plan of Treatment Health Maintenance Due Date Last Done Comments Influenza Vaccines (#1) 2023 12/11/19 18, 12/27/2014, 04/12/2014, Additional history exists COVID-19 Vaccine ( season) 2023 DTaP,Tdap,and Td Vaccines (8 - Td or Tdap) 08/04/2026 08/04/2016, 03/14/2009, 03/20/2003, Additional history exists Hepatitis B Vaccines Completed 1998, 1998, 1998 HIB Vaccines Completed 06/03/1999, 07/31, 1998, Additional history exists Pneumococcal Vaccine Completed 03/04/2000 MMR Vaccines Completed 03/10/2002, 03/05/1999 IPV Vaccines Completed 03/20/2003, 06/1999, 1998, Additional history exists Varicella Vaccines Completed 03/14/2009, 06/03/1999 HPV Vaccines Completed 07/01/2013, 03/03, 05/24/2012 Meningococcal Vaccine Completed 04/12/2014, 010 Hepatitis A Vaccines Aged Out 12/10/2017 No long er eligible based on patient's age to complete this topic Men B Vaccine Aged Out No longer elig ible based on patient's age to complete this topic Insurance O
--- OUTSIDE RECORDS SUMMARY | 2024-04-15 11:19 | XMS_ITS | Encounter Summary ---
Author Organization [facility] Address [address] [place] [address] Phone Care Team Providers Care Castables Worker Name Role Phone Rolly Jenkins MD Primary Care Provider Encounter Details Date Type Department Care Team (Late st Contact Info) Description 03/14/2009 Documentation [facility] Family Medicine [address] [place], [place] [id number] Family Medicine, Physician [address] [place] [address] Social History Tobacco Use Types Packs/Day Years [...] on filedocumented in this encounter Care Teams Castables Worker Relationship Specialty Start Date End Date Rolly Jenkins MD [address] [place] [address] PCP - General 07/08/17 01/11/24 documented as of this encounter
== END 2024-04-15 10:51 | disposition home or self-care (01) ==
LOC: HO.HOP 10:27
PROVIDERS: PCP Internal Medicine; Visit Provider Clinical Nurse Specialist Psychiatric/Mental Health
DX: F42.2 Mixed obsessional thoughts and acts (principal); F34.1 Dysthymic disorder; F41.1 Generalized anxiety disorder
CPT/HCPCS: 99214

== ENCOUNTER → 2024-04-15 10:27 | Outpatient (BNVA) | payer OTHER, SELFPAY | PROVIDERS: PCP Internal Medicine; Visit Provider Clinical Nurse Specialist Psychiatric/Mental Health ==

== ENCOUNTER 2024-07-12 12:58 | Outpatient (AMB) | payer OTHER, SELFPAY ==
--- NOTE | 2024-07-12 13:06 | A.OFFPSYCH_ITS ---
Intake Intake Visit Reasons: follow up [facility] Counselor Required: No Allergies bupropion [From Wellbutrin] Adverse Reaction (Severe, Verified 05/29/23 16:14) Seizure Medication List - Last Reconciled 07/12/24 by Юлия Weber APRN albuterol sulfate mg inhalation fluoxetine (Prozac) 80 mg (4 x 20 mg) PO DAILY hydroxyzine HCl 25 mg PO BEDTIME PRN lorazepam 0.5 mg PO DAILY HPI- Psychiatric Chief Complaint: follow up HPI Narrative: Pt reports stable mood and anxiety. He is compliant with medications. He has not tried the hydroxyzine. He does continue to have waking in the middle of the night but it does not distress him and he is deferring the hydroxyzine . discussed risks vs benefits of the hydroxyzine again. He reports no SI or HI. He is working FT at [employer] and likes it. He is socializing both with family and with friends. no medical changes Past Psychiatric History: Outpatient treatment of anxiety and OCD since age 16. prozac - higher then 30 mg in past caused edginess zoloft caused GI upset luvox partial effectiveness and hard to get due to manufacturing shortage. Subjective Subjective Subjective Medication Compliance: Yes Side effects from medications: No Review of Systems Medical Review of Systems: unchanged Mental Status Exam Mental Status Exam Patient Appearance: Well Grooomed and Appropriate Patient Orientation: Person, Place, Time and Situation Level of Consciousness: Awake and Appropriate Patient Behavior: Appropriate and Cooperative Mood Description: Calm Affect Description: Calm and Constricted Patient Cognition Impaired: No Ability to Follow Directions: Good Speech Pattern: Clear (minimal speech, short answers.), Appropriate and Soft- Spoken Memory Description: Intact Hallucinations: None Delusions: Not Present Thought Process: Intact Thought Content: positive for Intact Judgement: Fair Assessment and Plan Assessment & Plan (1) OCD (obsessive compulsive disorder): Status: Acute Qualifiers: Obsessive-compulsive disorder type: mixed obsessional thoughts and acts Qualified Code(s): F42.2 - Mixed obsessional thoughts and acts Code(s): F42.9 - Obsessive-compulsive disorder, unspecified (2) Dysthymia: Status: Acute Code(s): F34.1 - Dysthymic disorder (3) SINDY (generalized anxiety disorder): Status: Acute Code(s): F41.1 - Generalized anxiety disorder Medications: New hydroxyzine HCl 25 mg PO BEDTIME 30 tabs 0RF Refilled lorazepam 0.5 mg PO DAILY 20 tabs 0RF fluoxetine (Prozac) 80 mg (4 x 20 mg) PO DAILY 120 caps 3RF Counseling and coordination of Care Pt. Self Management counseling: Maintenance-social rhythm, Mod caffeine/ETOH intake, Nutrition education and improvement, Sleep hygiene, Behavior activation, General coping skills and Problem solving Medication management counseling: Effectiveness, Side effects, Dosing range, Duration, Drug interaction and Adherence Diagnosis and Prognosis Counseling: Accuracy of diagnosis, Impact of diagnosis on life functions, Impact of family relationship and Adequacy of current interventions Details: I spent 35 minutes reviewing the record, seeing the patient and documenting in the medical record. Counseling provided to the patient/caregiver as outlined below. Addressed patient/caregiver concerns regarding current medication regime including effective adherence. Addressed patient/caregiver concerns regarding diagnosis and prognosis including accuracy of diagnosis, prognosis over time, impact of diagnosis. Addressed patient/caregiver concerns regarding impact of recent stressors. 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
--- OUTSIDE RECORDS SUMMARY | 2024-07-12 13:59 | XMS_ITS | Encounter Summary ---
Author Organization [facility] Address [address] [place] [address] Care Team Providers Care Stationary Steam Engineer Name Role Phone Maribel Urbina MD Primary Care Provider [phone] Encounter Details Date Type Department Care Team (Late st Contact Info) Description 10/13/2023 Scanned Document [facility] 80 [facility] [address] [place] [address] [phone] Provider, Generic Social History Tobacco Use Types Packs/Day Years Used Date Smoking Tobacco: Never Assessed Sex and Gender Information Value Date Recorded Sex Assigned at Not on file Legal Sex Male 8:34 AM EDT Gender Identity Not on file Sexual Orientation Not on file documented as of this encounter Plan of Treatment Not on file documented as of this encounter Visit Diagnoses Not on filedocumented in this encounter Care Teams Stationary Steam Engineer Relationship Specialty Start Date End Date Maribel Urbina MD [address] [place] [address] PCP - General 10/13/23 documented as of this encounter
--- OUTSIDE RECORDS SUMMARY | 2024-07-12 13:59 | XMS_ITS | Clinical Summary ---
Author Organization [facility] Address [address] [place] [address] Phone Care Team Providers Care Soldering Inspector Name Role Phone Unavailable Primary Care Provider [...] 05/13; seen by Jhonatan and is in [facility] Immunizations Immunization Administration Dates Next Due DTaP [...]
--- OUTSIDE RECORDS SUMMARY | 2024-07-12 13:59 | XMS_ITS | Encounter Summary ---
Author Organization [facility] Address [address] [place] [address] Phone Care Team Providers Care Sales Secretary Name Role Phone Rolly Jenkins MD Primary Care Provider Encounter Details Date Type Department Care Team (Late st Contact Info) Description 03/14/2009 Documentation [facility] Family Medicine [address] [place], [place] [phone] Family Medicine, Physician [address] [place] [address] Social History Tobacco Use Types Packs/Day Years [...] on filedocumented in this encounter Care Teams Sales Secretary Relationship Specialty Start Date End Date Rolly Jenkins MD [address] [place] [address] PCP - General 07/08/17 01/11/24 documented as of this encounter
--- OUTSIDE RECORDS SUMMARY | 2024-07-12 13:59 | XMS_ITS | Encounter Summary ---
Author Organization [facility] Address [address] [place] [address] Care Team Providers Care Newsagent Name Role Phone Maribel Urbina MD Primary Care Provider [phone] Encounter Details Date Type Department Care Team (Late st Contact Info) Description 12/31/2023 Scanned Document [facility] 80 [facility] [address] [place] [address] [phone] Provider, Generic Social History Tobacco Use Types [...] on filedocumented in this encounter Care Teams Newsagent Relationship Specialty Start Date End Date Maribel Urbina MD [address] [place] [phone] PCP - General 10/13/23 documented as of this encounter
--- OUTSIDE RECORDS SUMMARY | 2024-07-12 13:59 | XMS_ITS | Encounter Summary ---
Author Organization [facility] Address [address] [place] [address] Care Team Providers Care Functional Tester Typewriters Name Role Phone Maribel Urbina MD Primary Care Provider [phone] Encounter Details Date Type Department Care Team (Late st Contact Info) Description 02/12/2024 Scanned Document [facility] [address] [phone] Anthony Levin MD [address] [place] [phone] Social History Tobacco Use Types Packs/Day Years [...] on filedocumented in this encounter Care Teams Functional Tester Typewriters Relationship Specialty Start Date End Date Maribel Urbina MD [address] [place] [phone] PCP - General 10/13/23 documented as of this encounter
--- OUTSIDE RECORDS SUMMARY | 2024-07-12 13:59 | XMS_ITS | Encounter Summary ---
Author Organization [facility] Address [address] [place] [address] Phone Care Team Providers Care Tin Plater Name Role Phone Rolly Jenkins MD Primary Care Provider [phone] Encounter Details Date Type Department Care Team (Late st Contact Info) Description 07/19/2017 Conversion Encounter [facility] [address] [place] [address] Rolly Jenkins MD [address] [place] [address] Social History Tobacco Use Types Packs/Day Years [...] on filedocumented in this encounter Care Teams Tin Plater Relationship Specialty Start Date End Date Rolly Jenkins MD [address] [place] [address] PCP - General 07/08/17 01/11/24 documented as of this encounter
--- OUTSIDE RECORDS SUMMARY | 2024-07-12 13:59 | XMS_ITS | Encounter Summary ---
Author Organization [facility] Address [address] [place] [address] Phone Care Team Providers Care Bearing Maker Name Role Phone Rolly Jenkins MD Primary Care Provider Encounter Details Date Type Department Care Team (Late st Contact Info) Description 03/05/2009 Documentation [facility] Family Medicine [address] [place], [place] [phone] Family Medicine, Physician [address] [place] [address] Social History Tobacco Use Types Packs/Day Years [...] on filedocumented in this encounter Care Teams Bearing Maker Relationship Specialty Start Date End Date Rolly Jenkins MD [address] [place] [address] PCP - General 07/08/17 01/11/24 documented as of this encounter
--- OUTSIDE RECORDS SUMMARY | 2024-07-12 13:59 | XMS_ITS | Clinical Summary ---
Author Organization [facility] Address [address] [place] [address] Care Team Providers Care Organizational Development Manager Name Role Phone Maribel Urbina MD Primary Care Provider Allergies No known active allergies Medications FLUoxetine (PROzac) 20 MG capsule Take 40 mg by mouth. 10/05/2023 Active naproxen (NAPROSYN) 500 MG tabletIndicatio ns:Numbness and tingling of both upper extremities,Acu te pain of right shoulder Take 1 tablet (500 mg total) by mouth 2 times daily (every 12 hours) as needed for mild pain. Take with meals or food to reduce stomach upset. 20 tablet 10/13/2023 Active cyclobenzaprine (FLEXERIL) 5 MG tabletIndicatio ns:Muscle spasm of back Take 1 tablet (5 mg total) by mouth 3 times daily (every 8 hours) as needed for muscle spasms. 30 tablet 10/13/2023 Active Active Problems No known active problems Social History Tobacco Use Types Packs/Day Years [...] of 3 - 19+ 3-dose series) 2017 COVID-19 Vaccine (1 - season) 2023 Influenza Vaccine 09/30/2024 12/10/2017, , 04/12/2014, Additional history exists Pneumococcal Vaccine: Pediatric (0-5 Years) and At-Risk Patients (6 to 49 Years) Aged Out No longer eligible based on patient's age to complete this topic Insurance [facility]Count [facility] Care Teams Organizational Development Manager Relationship Specialty Start Date End Date Maribel Urbina MD [address] [place] [address] PCP - General 10/13/23
--- OUTSIDE RECORDS SUMMARY | 2024-07-12 13:59 | XMS_ITS | Encounter Summary ---
Author Organization [facility] Address [address] [place] [address] Care Team Providers Care Manager Product Name Role Phone Maribel Urbina MD Primary Care Provider [phone] Encounter Details Date Type Department Care Team (Late st Contact Info) Description 12/31/2023 Scanned Document [facility] 80 [facility] [address] [place] [address] [phone] Provider, Generic Social History Tobacco Use Types [...] on filedocumented in this encounter Care Teams Manager Product Relationship Specialty Start Date End Date Maribel Urbina MD [address] [place] [address] PCP - General 10/13/23 documented as of this encounter
--- OUTSIDE RECORDS SUMMARY | 2024-07-12 13:59 | XMS_ITS | Clinical Summary ---
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
--- OUTSIDE RECORDS SUMMARY | 2024-07-12 13:59 | XMS_ITS | Encounter Summary ---
Author Organization [facility] Address [address] [place] [address] Care Team Providers Care Medical Imaging Technician Name Role Phone Maribel Urbina MD Primary Care Provider [phone] Encounter Details Date Type Department Care Team (Late st Contact Info) Description 10/13/2023 Scanned Document [facility] 80 [facility] [address] [place] [address] [phone] Provider, Generic Social History Tobacco Use Types [...] filedocumented in this encounter Care Teams Medical Imaging Technician Relationship Specialty Start Date End Date Maribel Urbina MD [address] [place] [phone] PCP - General 10/13/23 documented as of this encounter
== END 2024-07-12 15:54 | disposition home or self-care (01) ==
LOC: HO.HOP 12:58
PROVIDERS: PCP Internal Medicine; Visit Provider Clinical Nurse Specialist Psychiatric/Mental Health
DX: F42.2 Mixed obsessional thoughts and acts (principal); F34.1 Dysthymic disorder; F41.1 Generalized anxiety disorder
CPT/HCPCS: 99214

== ENCOUNTER → 2024-07-12 12:58 | Outpatient (BNVA) | payer OTHER, SELFPAY | PROVIDERS: PCP Internal Medicine; Visit Provider Clinical Nurse Specialist Psychiatric/Mental Health | DX: R53.83 Other fatigue (principal); F34.1 Dysthymic disorder ==

== ENCOUNTER 2024-09-26 10:36 | Outpatient (AMB) | payer OTHER, SELFPAY ==
--- NOTE | 2024-09-26 10:39 | MHC.OFFVISPS ---
Intake Intake Visit Reasons: f/u consultation Chief Counsel Required: No Allergies bupropion (From Wellbutrin) Adverse Reaction (Severe, Verified 05/29/23 16:14) Seizure Medication List - Last Reconciled 09/26/24 by Юлия Weber APRN albuterol sulfate mg inhalation fluoxetine (Prozac) 80 mg (4 x 20 mg) PO DAILY hydroxyzine HCl 25 mg PO BEDTIME lorazepam 0.5 mg PO DAILY HPI- Psychiatric Chief Complaint: f/u consultation HPI Narrative: Pt reports continued low level depression and anxiety. He is compliant with medications. He has tried the hydroxyzine but it makes him very tired the next morning. He continue to have waking in the middle of the night and often feels tired. He reports no SI or HI. He is working FT at [employer] and likes it. He is socializing both with family and with friends. He reports some anhedonia and loss of interest in activities. no medical changes Past Psychiatric History: Outpatient treatment of anxiety and OCD since age 16. prozac - higher then 30 mg in past caused edginess zoloft caused GI upset luvox partial effectiveness and hard to get due to manufacturing shortage. Subjective Subjective Subjective Medication Compliance: Yes Side effects from medications: No Review of Systems Medical Review of Systems: unchanged Mental Status Exam Mental Status Exam Patient Appearance: Well Grooomed and Appropriate Patient Orientation: Person, Place, Time and Situation Level of Consciousness: Awake and Appropriate Patient Behavior: Appropriate and Cooperative Mood Description: Calm Affect Description: Calm and Constricted Patient Cognition Impaired: No Ability to Follow Directions: Good Speech Pattern: Clear (minimal speech, short answers.), Appropriate and Soft-Spoken Memory Description: Intact Hallucinations: None Delusions: Not Present Thought Process: Intact Thought Content: positive for Intact Judgement: Fair Assessment and Plan Assessment & Plan (1) OCD (obsessive compulsive disorder): Status: Acute Qualifiers: Obsessive-compulsive disorder type: mixed obsessional thoughts and acts Qualified Code(s): F42.2 - Mixed obsessional thoughts and acts Code(s): F42.9 - Obsessive-compulsive disorder, unspecified (2) SINDY (generalized anxiety disorder): Status: Acute Code(s): F41.1 - Generalized anxiety disorder (3) Dysthymia: Status: Acute Code(s): F34.1 - Dysthymic disorder (4) Insomnia disorder, with non-sleep disorder mental comorbidity, recurrent: Status: Acute Code(s): F51.05 - Insomnia due to other mental disorder Plan hold hydroxyzine trial of amitriptyline 10mg at bedtime continue with prozac 80mg daily return in 8 weeks Medications: New amitriptyline 10 mg PO BEDTIME 30 tabs 2RF Refilled fluoxetine (Prozac) 80 mg (4 x 20 mg) PO DAILY 120 caps 3RF On Hold hydroxyzine HCl Hold Comment: Doctor's Order 25 mg PO BEDTIME 30 tabs 0RF Counseling and coordination of Care Pt. Self Management counseling: Maintenance-social rhythm, Mod caffeine/ETOH intake, Nutrition education and improvement, Sleep hygiene, Behavior activation, General coping skills and Problem solving Medication management counseling: Effectiveness, Side effects, Dosing range, Duration, Drug interaction and Adherence Diagnosis and Prognosis Counseling: Accuracy of diagnosis, Impact of diagnosis on life functions, Impact of family relationship and Adequacy of current interventions Details: I spent 35 minutes reviewing the record, seeing the patient and documenting in the medical record. Counseling provided to the patient/caregiver as outlined below. Addressed patient/caregiver concerns regarding current medication regime including effective adherence. Addressed patient/caregiver concerns regarding diagnosis and prognosis including accuracy of diagnosis, prognosis over time, impact of diagnosis. Addressed patient/caregiver concerns regarding impact of recent stressors. 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
--- OUTSIDE RECORDS SUMMARY | 2024-09-26 11:48 | XMS_ITS ---
Author Name [facility] Organization Unknown History of Medication Use Medication Directions Dispensed Refills Start Date End Date Stat us predniSONE (DELTASONE) 10 MG tablet Take 3 tablets (30 mg total) by mouth daily. Take in the morning with food. 07/21/2024 active cetirizine (ZyrTEC) 10 MG tablet Take 1 tablet (10 mg total) by mouth daily. 07/21/2024 active proMETHAZINE-dextrometho rphan (proMETHAZINE-DM) 6.25-15 MG/5ML syrup Take 5 mL by mouth 4 times daily (every 6 hours) as needed for cough. 07/21/2024 active albuterol (PROVENTIL HFA; VENTOLIN HFA) 108 (90 Base) MCG/ACT inhaler 07/05/2024 active hydrOXYzine HCl (ATARAX) 25 MG tablet 06/06/2024 active methylPREDNISolone (MEDROL DOSEPAK) 4 MG tablet follow package directions 10/14/2023 active Ativan 0.5 MG tablet Take 0.5 mg by mouth. 02/06/2023 active Problems Problem Status Onset Date Problem Type Date of Resoluti on Source Viral upper respiratory infection active EncounterDiagnosisAct [facility] Sore throat active EncounterDiagnosisAct [facility] Mild intermittent asthma with acute exacerbation active EncounterDiagnosisAct [facility] Encounters Encounter Type Encounter Reason Primary Diagnosis Location Date Ambulatory Acute pharyngitis, unspecified Acute pharyngitis, unspecified [facility] 07/21/2024 Ambulatory Radiculopathy, lumbar region Radiculopathy, lumbar region [facility] 01/19/2024 Ambulatory Low back pain, unspecified Low back pain, unspecified [facility] 01/01/2024 Ambulatory Anesthesia of skin Anesthesia of skin [facility] 12/31/2023 Ambulatory Pain Pain [facility] 12/04/2023 Ambulatory [facility] 10/14/2023 Ambulatory Cervicalgia Cerv[facility] 10/14/2023 Ambulatory [facility]esthesia [facility] skin [facility] Care Team Organization Name Specialty Phone Email Start Date End Da te iwi [facility] 10/13/2023 08/19/2024 iwi 10/13/2023 iwi [facility] 10/13/2023
--- OUTSIDE RECORDS SUMMARY | 2024-09-26 11:48 | XMS_ITS | Clinical Summary ---
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 ESOPHAGOGASTRODUODENOSCOPY PROCEDURE: [place] EGD TRANSORAL BIOPSY SINGLE/MULTIPLE; COMMENT: 08/2019 with [...] of 3 - 19+ 3-dose series) 2017 HIV Screening 02/01/2022 Hepatitis C Screening 02/01/2022 Social Influencers of Health Screening 02/01/2022 COVID-19 Vaccine (1 - 2023-2 5 season) 2023 Depression Screening 03/02/2024 Influenza Vaccine (#1) 2024 HIB Vaccines Aged Out No longer [...] 5 Years) and At-Risk Patients (6 to 49 Years) Aged Out No longer eligible b ased on patient's age to complete this topic RSV Immunization Patients Un darian 20 months Aged Out No longer eligible b ased on patient's age to complete this topic Varicella Vaccines Aged Out No longer eligible based on patient's age to complete this topic Care Teams Men'S Furnishings Salesperson Relationship Specialty Start Date End Date Maribel Urbina MD [address] [place] [address] PCP - General Internal Medicine 06/01/19
--- OUTSIDE RECORDS SUMMARY | 2024-09-26 11:48 | XMS_ITS | Encounter Summary ---
Author Organization [facility] Address [address] [place] [address] Phone Care Team Providers Care Color Card Maker Name Role Phone Rolly Jenkins MD Primary Care Provider [phone] Encounter Details Date Type Department Care Team (Late st Contact Info) Description 07/19/2017 Conversion Encounter [facility] [address] [place] [address] Rolly Jenkins MD [address] [place] [address] Social History Tobacco Use Types Packs/Day Years [...] on filedocumented in this encounter Care Teams Color Card Maker Relationship Specialty Start Date End Date Rolly Jenkins MD [address] [place] [address] PCP - General 07/08/17 01/11/24 documented as of this encounter
== END 2024-09-26 10:41 | disposition home or self-care (01) ==
LOC: HO.HOP 10:36
PROVIDERS: PCP Internal Medicine; Visit Provider Clinical Nurse Specialist Psychiatric/Mental Health
DX: F42.2 Mixed obsessional thoughts and acts (principal); F41.1 Generalized anxiety disorder; F34.1 Dysthymic disorder; F51.05 Insomnia due to other mental disorder
CPT/HCPCS: 99214

== ENCOUNTER 2024-11-28 10:33 | Outpatient (AMB) | payer OTHER, SELFPAY ==
--- NOTE | 2024-11-28 10:44 | A.OFFPSYCH_ITS ---
Intake Intake Visit Reasons: follow up Customer Care Associate Required: No Allergies bupropion (From Wellbutrin) Adverse Reaction (Severe, Verified 05/29/23 16:14) Seizure Medication List - Last Reconciled 11/28/24 by Юлия Weber APRN albuterol sulfate mg inhalation amitriptyline 10 mg PO BEDTIME fluoxetine (Prozac) 80 mg (4 x 20 mg) PO DAILY hydroxyzine HCl 25 mg PO BEDTIME Held on 09/26/24. Instructions: Doctor's Order lorazepam 0.5 mg PO DAILY HPI- Psychiatric Chief Complaint: follow up HPI Narrative: Pt reports continued low level depression and anxiety. He reports he misses 1-2 days of meds a week sometimes and if he misses 2 days a week then he will take 60mg the next daybecause he wasn't sure if hes should take whole 80 mg. We discussed switching meds to am instead of PM because he sometimes fall sleep without taking.. He continue to have waking in the middle of the night and often feels tired-switching the prozac to am may help with sleep. He reports no SI or HI. He is working FT at [employer] and likes it. He is socializing both with family and with friends. He reports some anhedonia and loss of interest in activities. No medical changes Past Psychiatric History: Outpatient treatment of anxiety and OCD since age 16. prozac - higher then 30 mg in past caused edginess zoloft caused GI upset luvox partial effectiveness and hard to get due to manufacturing shortage. Subjective Subjective Subjective Medication Compliance: Yes Side effects from medications: No Review of Systems Medical Review of Systems: unchanged Mental Status Exam Mental Status Exam Patient Appearance: Well Grooomed and Appropriate Patient Orientation: Person, Place, Time and Situation Level of Consciousness: Awake and Appropriate Patient Behavior: Appropriate and Cooperative Mood Description: Calm Affect Description: Calm and Constricted Patient Cognition Impaired: No Ability to Follow Directions: Good Speech Pattern: Clear (minimal speech, short answers.), Appropriate and Soft- Spoken Memory Description: Intact Hallucinations: None Delusions: Not Present Thought Process: Intact Thought Content: positive for Intact Judgement: Fair Assessment and Plan Assessment & Plan (1) OCD (obsessive compulsive disorder): Status: Acute Qualifiers: Obsessive-compulsive disorder type: mixed obsessional thoughts and acts Qualified Code(s): F42.2 - Mixed obsessional thoughts and acts Code(s): F42.9 - Obsessive-compulsive disorder, unspecified (2) SINDY (generalized anxiety disorder): Status: Acute Code(s): F41.1 - Generalized anxiety disorder (3) Dysthymia: Status: Acute Code(s): F34.1 - Dysthymic disorder (4) Insomnia disorder, with non-sleep disorder mental comorbidity, recurrent: Status: Acute Code(s): F51.05 - Insomnia due to other mental disorder Plan amitriptyline 10mg at bedtime change prozac 80mg to morning daily daily return in 8 weeks Medications: Refilled amitriptyline 10 mg PO BEDTIME 30 tabs 2RF fluoxetine (Prozac) 80 mg (4 x 20 mg) PO DAILY 120 caps 3RF Discontinued lorazepam Discontinued Reason: Doctor's Order 0.5 mg PO DAILY 20 tabs 0RF Counseling and coordination of Care Pt. Self Management counseling: Maintenance-social rhythm, Mod caffeine/ETOH intake, Nutrition education and improvement, Sleep hygiene, Behavior activation, General coping skills and Problem solving Medication management counseling: Effectiveness, Side effects, Dosing range, Duration, Drug interaction and Adherence Diagnosis and Prognosis Counseling: Accuracy of diagnosis, Impact of diagnosis on life functions, Impact of family relationship and Adequacy of current interventions Details: I spent 30 minutes reviewing the record, seeing the patient and documenting in the medical record. Counseling provided to the patient/caregiver as outlined below. Addressed patient/caregiver concerns regarding current medication regime including effective adherence. Addressed patient/caregiver concerns regarding diagnosis and prognosis including accuracy of diagnosis, prognosis over time, impact of diagnosis. Addressed patient/caregiver concerns regarding impact of recent stressors. 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
--- OUTSIDE RECORDS SUMMARY | 2024-11-28 11:48 | XMS_ITS | Encounter Summary ---
Author Organization [facility] Address [address] [place] [address] Phone Care Team Providers Care Transverse Abdominal Muscle Nurse Name Role Phone Rolly Jenkins MD Primary Care Provider [phone] Encounter Details Date Type Department Care Team (Late st Contact Info) Description 07/19/2017 Conversion Encounter [facility] [address] [place] [address] Rolly Jenkins MD [address] [place] [address] Social History Tobacco Use Types Packs/Day Years [...] on filedocumented in this encounter Care Teams Transverse Abdominal Muscle Nurse Relationship Specialty Start Date End Date Rolly Jenkins MD [address] [place] [address] PCP - General 07/08/17 01/11/24 documented as of this encounter
--- OUTSIDE RECORDS SUMMARY | 2024-11-28 11:48 | XMS_ITS | Clinical Summary ---
Author Organization [facility] Address [address] [place] [address] Care Team Providers Care Nutrition Assistant Name Role Phone Maribel Urbina MD Primary Care Provider Allergies No known active allergies Medications FLUoxetine (PROzac) 20 MG capsule Take 40 mg by mouth. 4 Active naproxen (NAPROSYN) 500 MG tabletIndication s:Numbness and tingling of both upper extremities,Acut e pain of right shoulder Take 1 tablet (500 mg total) by mouth 2 times daily (every 12 hours) as needed for mild pain. Take with meals or food to reduce stomach upset. 20 tablet 4 Active Additional Information Patient not taking.Reported on 07/21/2024 cyclobenzaprine (FLEXERIL) 5 MG tabletIndication s:Muscle spasm of back Take 1 tablet (5 mg total) by mouth 3 times daily (every 8 hours) as needed for muscle spasms. 30 tablet 4 Active Additional Information Patient not taking.Reported on 07/21/2024 albuterol (PROVENTIL HFA; VENTOLIN HFA) 108 (90 Base) MCG/ACT inhaler 5 Active hydrOXYzine HCl (ATARAX) 25 MG tablet 5 Active Ativan 0.5 MG tablet Take 0.5 mg by mouth. 3 Active proMETHAZINE-dex tromethorphan (proMETHAZINE-DM ) 6.25-15 MG/5ML syrupIndications :Viral upper respiratory infection,Mild intermittent asthma with acute exacerbation Take 5 mL by mouth 4 times daily (every 6 hours) as needed for cough. 60 mL 5 Active cetirizine (ZyrTEC) 10 MG tabletIndication s:Viral upper respiratory infection,Mild intermittent asthma with acute exacerbation Take 1 tablet (10 mg total) by mouth daily. 30 tablet 5 Active predniSONE (DELTASONE) 10 MG tabletIndication s:Viral upper respiratory infection,Mild intermittent asthma with acute exacerbation Take 3 tablets (30 mg total) by mouth daily. Take in the morning with food. 15 tablet 5 Active Active Problems No known active problems Social History Tobacco Use Types Packs/Day Years Used Date Smoking Tobacco: Never Assessed Sex and Gender Information Value Date Recorded Sex Assigned at Not on file Legal Sex Male 8:34 AM EDT Gender Identity Not on file Sexual Orientation Not on file Last Filed Vital Signs Vital Sign Reading Time Taken Comments Blood Pressure 132/90 07/21/2024 11:26 AM EDT Pulse 98 07/21/2024 11:26 AM EDT Temperature 36.9 C (98.5 F) 07/21/2024 11:26 AM EDT Respiratory Rate 18 07/21/2024 11:26 AM EDT Oxygen Saturation 94% 07/21/2024 11:26 AM EDT Inhaled Oxygen Concentration - - Weight 77.1 kg (170 lb) 07/21/2024 11:26 AM EDT Height 180.3 cm (5' 11 ) 07/21/2024 11:26 AM EDT Body Mass Index 23.71 07/21/2024 11:26 AM EDT Plan of Treatment Health Maintenance Due Date Last Done Comments Hepatitis C Virus Screening 1998 HIV Screening 2011 HPV Vaccines (1 - Male 3-dose series) 2013 DTaP/Tdap/Td Vaccines (1 - Tdap) 2017 Hepatitis B Vaccines (1 of 3 - 19+ 3-dose series) 2017 Influenza Vaccine 09/30/2024 12/10/2017, , 04/12/2014, Additional history exists COVID-19 Vaccine ( - season) 2024 Pneumococcal Vaccine: Pediatric (0-5 Years) and At-Risk Patients (6 to 49 Years) Aged Out No longer eligible based on patient's age to complete this topic Insurance [employer] HMO/POS Care Teams Nutrition Assistant Relationship Specialty Start Date End Date Maribel Urbina MD [address] [place] [address] PCP - General 10/13/23
--- OUTSIDE RECORDS SUMMARY | 2024-11-28 11:48 | XMS_ITS | Encounter Summary ---
Author Organization [facility] Address [address] [place] [address] Care Team Providers Care Tune Up Mechanic Name Role Phone Maribel Urbina MD Primary Care Provider [phone] Encounter Details Date Type Department Care Team (Late st Contact Info) Description 10/13/2023 Scanned Document [facility] 80 [facility] [address] [place] [address] [phone] Provider, Generic Social History Tobacco Use Types [...] on filedocumented in this encounter Care Teams Tune Up Mechanic Relationship Specialty Start Date End Date Maribel Urbina MD [address] [place] [phone] PCP - General 10/13/23 documented as of this encounter
--- OUTSIDE RECORDS SUMMARY | 2024-11-28 11:48 | XMS_ITS | Encounter Summary ---
Author Organization [facility] Address [address] [place] [address] Care Team Providers Care Wood Drilling Machine Operator Name Role Phone Maribel Urbina MD Primary Care Provider [phone] Encounter Details Date Type Department Care Team (Late st Contact Info) Description 02/12/2024 Scanned Document [facility] [address] [address] Anthony Levin MD [address] [place] [phone] Social History Tobacco Use Types Packs/Day Years [...] on filedocumented in this encounter Care Teams Wood Drilling Machine Operator Relationship Specialty Start Date End Date Maribel Urbina MD [address] [place] [address] PCP - General 10/13/23 documented as of this encounter
--- OUTSIDE RECORDS SUMMARY | 2024-11-28 11:48 | XMS_ITS | Encounter Summary ---
Author Organization [facility] Address [address] [place] [address] Care Team Providers Care Agility Instructor Name Role Phone Maribel Urbina MD Primary Care Provider [phone] Encounter Details Date Type Department Care Team (Late st Contact Info) Description 10/13/2023 Scanned Document [facility] 80 [facility] [address] [place] [phone] Provider, Generic Social History Tobacco Use Types [...] on filedocumented in this encounter Care Teams Agility Instructor Relationship Specialty Start Date End Date Maribel Urbina MD [address] [place] [address] PCP - General 10/13/23 documented as of this encounter
--- OUTSIDE RECORDS SUMMARY | 2024-11-28 11:49 | XMS_ITS | Encounter Summary ---
Author Organization [facility] Address [address] [place] [address] Phone Care Team Providers Care Flatwork Tier Name Role Phone Rolly Jenkins MD Primary Care Provider [phone] Encounter Details Date Type Department Care Team (Late st Contact Info) Description 03/05/2009 Documentation [facility] Family Medicine [address] [place], [place] [id number] Family Medicine, Physician [address] [place] [address] Social History Tobacco Use Types Packs/Day Years [...] on filedocumented in this encounter Care Teams Flatwork Tier Relationship Specialty Start Date End Date Rolly Jenkins MD [address] [place] [address] PCP - General 07/08/17 01/11/24 documented as of this encounter
--- OUTSIDE RECORDS SUMMARY | 2024-11-28 11:49 | XMS_ITS | Encounter Summary ---
Author Organization [facility] Address [address] [place] [address] Care Team Providers Care Concrete Finishing Machine Operator Name Role Phone Maribel Urbina MD Primary Care Provider [phone] Encounter Details Date Type Department Care Team (Late st Contact Info) Description 12/31/2023 Scanned Document [facility] 80 [facility] [address] [place] [phone] Provider, Generic Social History Tobacco Use Types [...] on filedocumented in this encounter Care Teams Concrete Finishing Machine Operator Relationship Specialty Start Date End Date Maribel Urbina MD [address] [place] [address] PCP - General 10/13/23 documented as of this encounter
--- OUTSIDE RECORDS SUMMARY | 2024-11-28 11:49 | XMS_ITS | Encounter Summary ---
Author Organization [facility] Address [address] [place] [address] Care Team Providers Care Word Processor Technician Name Role Phone Maribel Urbina MD Primary Care Provider [phone] Encounter Details Date Type Department Care Team (Late st Contact Info) Description 07/21/2024 Scanned Document [facility] 80 [facility] [address] [place] [address] [phone] Provider, Generic Social History Tobacco Use Types [...] on filedocumented in this encounter Care Teams Word Processor Technician Relationship Specialty Start Date End Date Maribel Urbina MD [address] [place] [address] PCP - General 10/13/23 documented as of this encounter
--- OUTSIDE RECORDS SUMMARY | 2024-11-28 11:49 | XMS_ITS | Encounter Summary ---
Author Organization [facility] Address [address] [place] [phone] Phone Care Team Providers Care Ibm Mainframe Developer Name Role Phone Rolly Jnekins MD Primary Care Provider Encounter Details Date Type Department Care Team (Late st Contact Info) Description 03/14/2009 Documentation [facility] Family Medicine [address] [place], [place] [phone] Family Medicine, Physician [address] [place] [address] Social History Tobacco Use Types Packs/Day Years [...] on filedocumented in this encounter Care Teams Ibm Mainframe Developer Relationship Specialty Start Date End Date Rolly Jenkins MD [address] [place] [address] PCP - General 07/08/17 01/11/24 documented as of this encounter
--- OUTSIDE RECORDS SUMMARY | 2024-11-28 11:49 | XMS_ITS | Clinical Summary ---
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
--- OUTSIDE RECORDS SUMMARY | 2024-11-28 11:49 | XMS_ITS | Encounter Summary ---
Author Organization [facility] Address [address] [place] [address] Care Team Providers Care Cabinet Abrasive Sandblaster Name Role Phone Maribel Urbina MD Primary Care Provider [phone] Encounter Details Date Type Department Care Team (Late st Contact Info) Description 12/31/2023 Scanned Document [facility] 80 [facility] [address] [place] [phone] Provider, Generic Social History Tobacco Use Types [...] on filedocumented in this encounter Care Teams Cabinet Abrasive Sandblaster Relationship Specialty Start Date End Date Maribel Urbina MD [address] [place] [address] PCP - General 10/13/23 documented as of this encounter
--- OUTSIDE RECORDS SUMMARY | 2024-11-28 11:49 | XMS_ITS | Encounter Summary ---
Author Organization [facility] Address [address] [place] [address] Care Team Providers Care Bicycle Service Technician Name Role Phone Maribel Urbina MD Primary Care Provider [phone] Encounter Details Date Type Department Care Team (Late st Contact Info) Description 07/21/2024 Scanned Document [facility] 80 [facility] [address] [place] [address] [phone] Provider, Generic Social History Tobacco Use Types [...] on filedocumented in this encounter Care Teams Bicycle Service Technician Relationship Specialty Start Date End Date Maribel Urbina MD [address] [place] [address] PCP - General 10/13/23 documented as of this encounter
--- OUTSIDE RECORDS SUMMARY | 2024-11-28 11:49 | XMS_ITS | Clinical Summary ---
Author Organization [facility] Address [address] [place] [phone] Phone Care Team Providers Care Bag Adjuster Name Role Phone Unavailable Primary Care Provider [...] 05/13; seen by Jhonatan and is in banner Immunizations Immunization Administration Dates Next Due DTaP [...] 111 06/07/2009 12:00 AM EDT Temperature 36.6 C (97.8 F) 12/16/2016 12:00 AM EDT Respiratory Rate - - Oxygen Saturation 98% 06/07/2009 12:00 AM EDT Inhaled Oxygen Concentration - - Weight 67.1 kg (148 lb) 12/10/2017 1:17 PM EDT Height 180.3 cm (5' 11 ) 12/10/2017 1:17 PM EDT Body Mass Index 20.64 12/10/2017 1:17 PM EDT Plan of Treatment Health Maintenance Due Date Last Done Comments Influenza Vaccines (#1) 2024 12/11/19 18, 12/27/2014, 04/12/2014, Additional history exists COVID-19 Vaccine ( season) 2024 DTaP,Tdap,and Td Vaccines (8 - Td or [...] patient's age to complete this topic Insurance HMO
== END 2024-11-28 11:05 | disposition home or self-care (01) ==
LOC: HO.HOP 10:33
PROVIDERS: PCP Internal Medicine; Visit Provider Clinical Nurse Specialist Psychiatric/Mental Health
DX: F42.2 Mixed obsessional thoughts and acts (principal); F41.1 Generalized anxiety disorder; F34.1 Dysthymic disorder; F51.05 Insomnia due to other mental disorder
CPT/HCPCS: 99214

== ENCOUNTER 2025-01-24 12:56 | Outpatient (AMB) | payer OTHER, SELFPAY ==
--- NOTE | 2025-01-24 13:06 | A.OFFPSYCH_ITS ---
Intake Intake Visit Reasons: follow up Chemist Water Purification Required: No Allergies bupropion (From Wellbutrin) Adverse Reaction (Severe, Verified 05/29/23 16:14) Seizure Medication List - Last Reconciled 01/24/25 by Юлия Weber APRN albuterol sulfate mg inhalation amitriptyline 10 mg PO BEDTIME fluoxetine (Prozac) 80 mg (4 x 20 mg) PO DAILY HPI- Psychiatric Chief Complaint: follow up HPI Past Psychiatric History: Outpatient treatment of anxiety and OCD since age 16. prozac - higher then 30 mg in past caused edginess zoloft caused GI upset luvox partial effectiveness and hard to get due to manufacturing shortage. Mental Status Exam Mental Status Exam Patient Appearance: Well Grooomed and Appropriate Patient Orientation: Person, Place, Time and Situation Level of Consciousness: Awake and Appropriate Patient Behavior: Appropriate and Cooperative Mood Description: Calm and Anxious (mild) Affect Description: Calm and Anxious (mild) Patient Cognition Impaired: No Ability to Follow Directions: Good Speech Pattern: Clear (minimal speech, short answers.), Appropriate and Soft- Spoken Memory Description: Intact Hallucinations: None Delusions: Not Present Thought Process: Intact Thought Content: positive for Intact Judgement: Fair Assessment and Plan Assessment & Plan (1) OCD (obsessive compulsive disorder): Status: Acute Qualifiers: Obsessive-compulsive disorder type: mixed obsessional thoughts and acts Qualified Code(s): F42.2 - Mixed obsessional thoughts and acts Code(s): F42.9 - Obsessive-compulsive disorder, unspecified Medications: Refilled amitriptyline 10 mg PO BEDTIME 30 tabs 2RF fluoxetine (Prozac) 80 mg (4 x 20 mg) PO DAILY 120 caps 3RF Counseling and coordination of Care Pt. Self Management counseling: Maintenance-social rhythm, Mod caffeine/ETOH intake, Sleep hygiene and General coping skills Diagnosis and Prognosis Counseling: Accuracy of diagnosis, Prognosis over time, Impact of diagnosis on life functions and Adequacy of current interventions Details: I spent 24 minutes reviewing the record, seeing the patient and documenting in the medical record. Counseling provided to the patient/caregiver as outlined below. Addressed patient/caregiver concerns regarding current medication regime including effective adherence. Addressed patient/caregiver concerns regarding diagnosis and prognosis including accuracy of diagnosis, prognosis over time, impact of diagnosis. Addressed patient/caregiver concerns regarding impact of recent stressors. 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
--- OUTSIDE RECORDS SUMMARY | 2025-01-24 16:38 | XMS_ITS | Encounter Summary ---
Author Organization [facility] Address [address] [place] [address] Care Team Providers Care Hand Winder Name Role Phone Maribel Urbina MD Primary Care Provider [phone] Encounter Details Date Type Department Care Team (Late st Contact Info) Description 07/21/2024 Scanned Document [facility] 80 [facility] [address] [place] [address] [phone] Provider, Generic Social History Tobacco Use Types [...] on filedocumented in this encounter Care Teams Hand Winder Relationship Specialty Start Date End Date Maribel Urbina MD [address] [place] [phone] PCP - General 10/13/23 documented as of this encounter
--- OUTSIDE RECORDS SUMMARY | 2025-01-24 16:38 | XMS_ITS | Encounter Summary ---
Author Organization [facility] Address [address] [place] [address] Care Team Providers Care Healthcare Market Consultant Name Role Phone Maribel Urbina MD Primary Care Provider [phone] Encounter Details Date Type Department Care Team (Late st Contact Info) Description 10/13/2023 Scanned Document [facility] 80 [facility] [address] [place] [address] [phone] Provider, Generic Social History Tobacco Use Types [...] on filedocumented in this encounter Care Teams Healthcare Market Consultant Relationship Specialty Start Date End Date Maribel Urbina MD [address] [place] [phone] PCP - General 10/13/23 documented as of this encounter
--- OUTSIDE RECORDS SUMMARY | 2025-01-24 16:38 | XMS_ITS | Encounter Summary ---
Author Organization [facility] Address [address] [place] [address] Phone Care Team Providers Care Printed Circuit Boards Contact Printer Name Role Phone Rolly Jenkins MD Primary Care Provider [phone] Encounter Details Date Type Department Care Team (Late st Contact Info) Description 07/19/2017 Conversion Encounter [facility] [address] [place] [address] Rolly Jenkins MD [address] [place] [address] Social History Tobacco Use Types Packs/Day Years [...] on filedocumented in this encounter Care Teams Printed Circuit Boards Contact Printer Relationship Specialty Start Date End Date Rolly Jenkins MD [address] [place] [address] PCP - General 07/08/17 01/11/24 documented as of this encounter
--- OUTSIDE RECORDS SUMMARY | 2025-01-24 16:38 | XMS_ITS | Clinical Summary ---
Author Organization [facility] Address [address] [place] [phone] Phone Care Team Providers Care Event Staff Name Role Phone Unavailable Primary Care Provider [...] 05/13; seen by Jhonatan and is in [facility] Immunizations Immunization Administration Dates Next Due DTaP [...]
--- OUTSIDE RECORDS SUMMARY | 2025-01-24 16:38 | XMS_ITS | Encounter Summary ---
Author Organization [facility] Address [address] [place] [address] Phone Care Team Providers Care Bridge Repair Crew Person Name Role Phone Rolly Jenkins MD Primary Care Provider Encounter Details Date Type Department Care Team (Late st Contact Info) Description 03/14/2009 Documentation [facility] [address] [place], [place] [id number] Family Medicine, Physician [address] [place] [address] Social History Tobacco Use Types Packs/Day Years [...] on filedocumented in this encounter Care Teams Bridge Repair Crew Person Relationship Specialty Start Date End Date Rolly Jenkins MD [address] [place] [address] PCP - General 07/08/17 01/11/24 documented as of this encounter
--- OUTSIDE RECORDS SUMMARY | 2025-01-24 16:38 | XMS_ITS | Encounter Summary ---
Author Organization [facility] Address [address] [place] [address] Care Team Providers Care Rv Technician Name Role Phone Maribel Urbina MD Primary Care Provider [phone] Encounter Details Date Type Department Care Team (Late st Contact Info) Description 10/13/2023 Scanned Document [facility] 80 [facility] [address] [place] [address] [phone] Provider, Generic Social History Tobacco Use Types [...] on filedocumented in this encounter Care Teams Rv Technician Relationship Specialty Start Date End Date Maribel Urbina MD [address] [place] [phone] PCP - General 10/13/23 documented as of this encounter
--- OUTSIDE RECORDS SUMMARY | 2025-01-24 16:38 | XMS_ITS | Encounter Summary ---
Author Organization [facility] Address [address] [place] [address] Phone Care Team Providers Care Handkerchief Maker Name Role Phone Rolly Jenkins MD Primary Care Provider [phone] Encounter Details Date Type Department Care Team (Late st Contact Info) Description 03/05/2009 Documentation [facility] [address] [place], [place] [phone] Family Medicine, Physician [address] [place] [address] Social History Tobacco Use Types Packs/Day Years [...] on filedocumented in this encounter Care Teams Handkerchief Maker Relationship Specialty Start Date End Date Rolly Jenkins MD [address] [place] [address] PCP - General 07/08/17 01/11/24 documented as of this encounter
--- OUTSIDE RECORDS SUMMARY | 2025-01-24 16:38 | XMS_ITS | Encounter Summary ---
Author Organization [facility] Address [address] [place] [address] Care Team Providers Care Telephone Order Clerk Room Service Name Role Phone Maribel Urbina MD Primary Care Provider [phone] Encounter Details Date Type Department Care Team (Late st Contact Info) Description 12/31/2023 Scanned Document [facility] 80 [facility] [address] [place] [phone] Provider, Generic Social History Tobacco Use Types [...] on filedocumented in this encounter Care Teams Telephone Order Clerk Room Service Relationship Specialty Start Date End Date Maribel Urbina MD [address] [place] [address] PCP - General 10/13/23 documented as of this encounter
--- OUTSIDE RECORDS SUMMARY | 2025-01-24 16:38 | XMS_ITS | Encounter Summary ---
Author Organization [facility] Address [address] [place] [address] Care Team Providers Care Residential Program Manager Name Role Phone Maribel Urbina MD Primary Care Provider [phone] Encounter Details Date Type Department Care Team (Late st Contact Info) Description 12/31/2023 Scanned Document [facility] 80 [facility] [address] [place] [phone] Provider, Generic Social History Tobacco Use Types [...] on filedocumented in this encounter Care Teams Residential Program Manager Relationship Specialty Start Date End Date Maribel Urbina MD [address] [place] [phone] PCP - General 10/13/23 documented as of this encounter
--- OUTSIDE RECORDS SUMMARY | 2025-01-24 16:38 | XMS_ITS | Encounter Summary ---
Author Organization [facility] Address [address] [place] [address] Care Team Providers Care Coffee Maker Servicer Name Role Phone Maribel Urbina MD Primary Care Provider [phone] Encounter Details Date Type Department Care Team (Late st Contact Info) Description 02/12/2024 Scanned Document [facility] [address] [phone] Anthony Levin MD [address] [place] [phone] Social History Tobacco Use Types Packs/Day Years [...] on filedocumented in this encounter Care Teams Coffee Maker Servicer Relationship Specialty Start Date End Date Maribel Urbina MD [address] [place] [address] PCP - General 10/13/23 documented as of this encounter
--- OUTSIDE RECORDS SUMMARY | 2025-01-24 16:38 | XMS_ITS | Encounter Summary ---
Author Organization [facility] Address [address] [place] [address] Care Team Providers Care Karate Instructor Name Role Phone Maribel Urbina MD Primary Care Provider [phone] Encounter Details Date Type Department Care Team (Late st Contact Info) Description 07/21/2024 Scanned Document [facility] 80 [facility] [address] [place] [address] [phone] Provider, Generic Social History Tobacco Use Types [...] on filedocumented in this encounter Care Teams Karate Instructor Relationship Specialty Start Date End Date Maribel Urbina MD [address] [place] [phone] PCP - General 10/13/23 documented as of this encounter
--- OUTSIDE RECORDS SUMMARY | 2025-01-24 16:38 | XMS_ITS | Clinical Summary ---
Author Organization [facility] Address [address] [place] [address] Care Team Providers Care Grinder Set Up Operator Jig Name Role Phone Maribel Urbina MD Primary Care Provider [phone] Allergies No known active allergies Medications FLUoxetine [...] this topic Insurance [employer] HMO/POS Care Teams Grinder Set Up Operator Jig Relationship Specialty Start Date End Date Maribel Urbina MD [address] [place] [phone] PCP - General 10/13/23
== END 2025-01-24 13:21 | disposition home or self-care (01) ==
LOC: HO.HOP 12:56
PROVIDERS: PCP Internal Medicine; Visit Provider Clinical Nurse Specialist Psychiatric/Mental Health
DX: F42.2 Mixed obsessional thoughts and acts (principal)
CPT/HCPCS: 99213